=== PATIENT | male | born 1965 | race Caucasian/White ===

== ENCOUNTER 2019-08-29 14:12 | Emergency (ER) | payer SELFPAY ==
[~2019-08-29] VITALS: Ht 185.4 cm; Wt 170.4 kg
[~2019-08-29 14:12] MED LIST: ENOX150D SQ; FAMO20TA5 PO; LACT1CAP19 PO; LINE600T12 PO; WARF-78 PO
[2019-08-29 14:27] VITALS: BP 181/107
[2019-08-29 14:43] LABS: PROTHROMBIN TIME PATIENT 13.9 SEC (11.7-14.0)
[2019-08-29] MEDS ORDERED: CEPH-264 PO (16:00)
[2019-08-29] MEDS ORDERED: WARF-31 PO (16:00)
--- NOTE | 2019-08-29 16:18 | PHYS DOC ---
Past Medical History Past Medical History: DVT Additional Past Medical Histor: PE, CHRONIC BACK PAIN Past Surgical History: Other Additional Past Surgical Histo: R. KNEE Smoking Status: Never Smoker Alcohol Use: None General Adult EDM: Chief Complaint: ABNORMAL LABS HPI: HPI: Patient is a 54 year old male who presents needing an INR check. Patient was admitted at the beginning of August for DVT with PE and was placed on coumadin. He was discharged home with Warfarin 5mg daily and has been taking that for the last 2 weeks. He denies any new issues. He doesn't have insurance so he was unable to get into a clinic to follow up. He called the admitting physician who recommended that he come to the ED to have it checked. He also was unable to afford his Zyvox prescription for his cellulitis. Review of Systems: Review of Systems: Constitutional: Denies fever or chills. [] Eyes: Denies change in visual acuity. [] HENT: Denies nasal congestion or sore throat. [] Respiratory: Denies cough or shortness of breath. [] Cardiovascular: Denies chest pain or edema. [] GI: Denies abdominal pain, nausea, vomiting, bloody stools or diarrhea. [] : Denies dysuria. [] Musculoskeletal: Denies back pain or joint pain. [] Integument: Denies rash. [] Neurologic: Denies headache, focal weakness or sensory changes. [] Endocrine: Denies polyuria or polydipsia. [] Lymphatic: Denies swollen glands. [] Psychiatric: Denies depression or anxiety. [] Heart Score: Risk Factors: Risk Factors: DM, Current or recent (<one month) smoker, HTN, HLP, family history of CAD, obesity. Risk Scores: Score 0 - 3: 2.5% MACE over next 6 weeks - Discharge Home Score 4 - 6: 20.3% MACE over next 6 weeks - Admit for Clinical Observation Score 7 - 10: 72.7% MACE over next 6 weeks - Early Invasive Strategies Allergies: Allergies: Allergies Coded Allergies Type Severity Reaction Last Updated Verified aspartame Allergy Intermediate 08/10/19 Yes Physical Exam: PE: Constitutional: Well developed, well nourished, Cooperative, NAD, non-toxic appearing HEENT: Normocephalic, atraumatic, oropharynx moist, EOMI, PERRL, no drainage fr om eyes, normal conjunctiva Neck: Supple, normal range of motion, no stridor Cardiovascular: RRR, 2+ radial pulses bilaterally, no edema Respiratory: CTA bilaterally, no respiratory distress, no wheezing/crackles Abdomen: Soft, nontender, nondistended, no masses Skin: Warm, dry, intact Extremities: No obvious deformities Neurologic: Alert and Oriented x3, motor and sensory function grossly normal, no focal deficits Psychologic: Normal affect, normal judgment, normal mood. No SI/HI Current Patient Data: Labs: Laboratory Tests Test 08/29/19 14:13 Prothrombin Time 13.9 SEC (11.7-14.0) Prothrombin Time INR 1.1 (0.8-1.1) Vital Signs: Vital Signs Date Time Temp Pulse Resp B/P (MAP) Pulse Ox O2 Delivery O2 Flow Rate FiO2 08/29/19 14:27 97.9 99 18 181/107 (131) 93 Room Air 97.9 EKG: EKG: [] Radiology/Procedures: Radiology/Procedures: [] Course & Med Decision Making: Course & Med Decision Making Pertinent Labs and Imaging studies reviewed. (See chart for details) Patient is a 54 year old male who presents needing INR checked. INR is 1.1 at this time. I have discussed the case with Dr Del Castillo the on-call hospitalist who recommended the following warfarin adjustments: Warfarin 15mg MWF and Warfarin 10mg TThSaSu. I have discussed this change with the patient who states understanding. I will also switch him to Keflex for his cellulitis. He was given a list of free clinics. Patient's test results and vitals while in the ED were fully reviewed and discussed with the patient. Patient is stable and at this time does not need admission to the hospital. We have discussed strict return precautions and the importance of following up with their Primary Care Physician. Patient stated understanding and was given an opportunity to ask any questions. Dragon Disclaimer: Dragon Disclaimer: This electronic medical record was generated, in whole or in part, using a voice recognition dictation system. Departure Departure Impression: Primary Impression: Pulmonary embolism Disposition: HOME, SELF-CARE Condition: GOOD Patient Instructions: Warfarin, [id number] Scripts Cephalexin (KEFLEX) 500 Mg Capsule 1 CAP PO TID for 10 Days, #30 CAP 0 Refills Prov: CHANNING MEJÍA MD 08/29/19 Warfarin Sodium (WARFARIN SODIUM) 5 Mg Tablet 10 MG PO DAILY, #42 TAB Take 10mg on Wednesday, , Wednesday, Wednesday Take 15mg on Wednesday, Wednesday, Wednesday Prov: CHANNING MEJÍA MD 08/29/19 CHANNING MEJÍA MD August 29, 2019 16:18
== END 2019-08-29 16:06 | disposition home or self-care (01) ==
LOC: ER 14:12
DX: I26.99 Other pulmonary embolism without acute cor pulmonale (principal); G89.29 Other chronic pain; Z86.718 Personal history of other venous thrombosis and embolism; Z79.01 Long term (current) use of anticoagulants; Z88.8 Allergy status to other drugs, medicaments and biological substances
CPT/HCPCS: 36415; 85610; 99283

== ENCOUNTER 2019-09-16 11:19 | Emergency (ER) | payer SELFPAY ==
[~2019-09-16] VITALS: Ht 185.4 cm; Wt 189.3 kg
[~2019-09-16 11:19] MED LIST changes: +CEPH-264 PO; +WARF-31 PO; -WARF-78 PO; +WARF5TAB2 PO
[2019-09-16 12:16] LABS: BASO % 1 % (0-3); EOS # 0.3 x10^3/uL (0.0-0.7); EOS % 5 % (0-3); HEMATOCRIT 47.9 % (39.0-53.0); HEMOGLOBIN 15.6 g/dL (13.0-17.5); LYMPH # 1.1 x10^3/uL (1.0-4.8); LYMPH % 17 % (24-48); MEAN CORPUSCULAR HEMOGLOBIN 28 pg (25-35); MEAN CORPUSCULAR HGB CONC 33 g/dL (31-37); MEAN CORPUSCULAR VOLUME 85 fL (79-100); MONO # 0.5 x10^3/uL (0.0-1.1); MONO % 7 % (0-9); NEUT # 4.4 x10^3/uL (1.8-7.7); NEUT % 69 % (31-73); PLATELET COUNT 263 x10^3/uL (140-400); RED BLOOD COUNT 5.63 x10^6/uL (4.30-5.70); RED CELL DISTRIBUTION WIDTH 16.4 % (11.5-14.5); WHITE BLOOD COUNT 6.4 x10^3/uL (4.0-11.0)
[2019-09-16 12:25] LABS: PROTHROMBIN TIME PATIENT 20.4 SEC (11.7-14.0)
--- NOTE | 2019-09-16 13:50 | RAD ---
EXAM: Right lower extremity venous Doppler. HISTORY: Increased swelling in the right lower extremity. History of recent DVT. COMPARISON: Venous duplex ultrasound of 08/04/2019 of the bilateral lower extremity. FINDINGS: Grayscale and Doppler analysis of the right lower extremity deep venous system was performed with graded compression and augmentation. The common femoral, greater saphenous, superficial femoral, popliteal and calf veins were assessed. There is interval development of color Doppler signal in the posterior tibial vein which remains noncompressible. Likewise, noncompressibility of the distal right popliteal and better visualized peroneal vein on this examination is demonstrated, consistent with nonocclusive DVT. IMPRESSION: 1. Nonocclusive DVT in the right popliteal, peroneal and posterior tibial veins with partial interval recanalization of the previously occluded posterior tibial vein. Electronically signed by: Hortencia Alva MD (09/16/2019 1:47 PM) [id number]
[2019-09-16 14:07] VITALS: BP 144/99
[2019-09-16] MEDS ORDERED: WARF5TAB2 PO (14:21)
--- NOTE | 2019-09-16 14:22 | PHYS DOC ---
Past Medical History Past Medical History: DVT, Other Additional Past Medical Histor: PE, CHRONIC BACK PAIN Past Surgical History: Other Additional Past Surgical Histo: R. KNEE Smoking Status: Never Smoker Alcohol Use: None General Adult EDM: Chief Complaint: LOWER EXTREMITY SWELLING HPI: HPI: Patient is a 54 year old male who presents to the emergency department with complaints of increased right leg swelling since last night. He was dismissed from this hospital on August 172019 after being admitted for a DVT in his right leg and pulmonary embolisms. Patient denies any increased pain to his right lower extremity. He denies any chest pain, palpitations, shortness of breath, hemoptysis, nausea, vomiting, diarrhea, abdominal pain, body aches, fatigue, or wheezing. Patient denies any drainage or weeping from his right lower extremity. He denies any injury. Patient reports that he has been taking Coumadin 10 mg on Tuesdays, , Saturdays, and Sundays and 15 mg on Mondays, Wednesdays, and Fridays since being discharged from this facility. Patient states he has been unable to have his INR rechecked because he lost his insurance and reports that he needs a refill of his Coumadin because he took his last dose yesterday. Patient currently denies any pain. Review of Systems: Review of Systems: Constitutional: Denies fever or chills. [] Eyes: Denies change in visual acuity. [] HENT: Denies nasal congestion or sore throat. [] Respiratory: Denies cough or shortness of breath. [] Cardiovascular: Denies chest pain or edema. [] GI: Denies abdominal pain, nausea, vomiting, bloody stools or diarrhea. [] : Denies dysuria. [] Musculoskeletal: Denies back pain or joint pain; see HPI [] Integument: Denies rash; see HPI [] Neurologic: Denies headache, focal weakness or sensory changes. [] Endocrine: Denies polyuria or polydipsia. [] Lymphatic: Denies swollen glands. [] Psychiatric: Denies depression or anxiety. [] Heart Score: Risk Factors: Risk Factors: DM, Current or recent (<one month) smoker, HTN, HLP, family history of CAD, obesity. Risk Scores: Score 0 - 3: 2.5% MACE over next 6 weeks - Discharge Home Score 4 - 6: 20.3% MACE over next 6 weeks - Admit for Clinical Observation Score 7 - 10: 72.7% MACE over next 6 weeks - Early Invasive Strategies Allergies: Allergies: Allergies Coded Allergies Type Severity Reaction Last Updated Verified aspartame Allergy Intermediate 08/10/19 Yes Physical Exam: PE: Constitutional: Well developed, well nourished, no acute distress, non-toxic appearance, morbidly obese. [] HENT: Normocephalic, atraumatic, bilateral external ears normal, nose normal. [] Eyes: PERRLA, EOMI, conjunctiva normal, no discharge. [] Neck: Normal range of motion, no stridor. [] Cardiovascular:Heart rate regular rhythm Lungs & Thorax: Respirations even and unlabored, no retractions, no respiratory distress Abdomen: soft, no tenderness Skin: Warm, dry, erythema to bilateral lower extremities, no warmth, no drainage Extremities: RLE: No bony tenderness or deformity, posterior tibial and pedal pulse 2+, no cyanosis, ROM intact, 2 + edema. [] Neurologic: Alert and oriented X 3, no focal deficits noted. [] Psychologic: Affect normal, judgement normal, mood normal. [] Current Patient Data: Labs: Laboratory Tests Test 09/16/19 12:05 White Blood Count 6.4 x10^3/uL (4.0-11.0) Red Blood Count 5.63 x10^6/uL (4.30-5.70) Hemoglobin 15.6 g/dL (13.0-17.5) Hematocrit 47.9 % (39.0-53.0) Mean Corpuscular Volume 85 fL (79-100) Mean Corpuscular Hemoglobin 28 pg (25-35) Mean Corpuscular Hemoglobin Concent 33 g/dL (31-37) Red Cell Distribution Width 16.4 % (11.5-14.5) H Platelet Count 263 x10^3/uL (140-400) Neutrophils (%) (Auto) 69 % (31-73) Lymphocytes (%) (Auto) 17 % (24-48) L Monocytes (%) (Auto) 7 % (0-9) Eosinophils (%) (Auto) 5 % (0-3) H Basophils (%) (Auto) 1 % (0-3) Neutrophils # (Auto) 4.4 x10^3/uL (1.8-7.7) Lymphocytes # (Auto) 1.1 x10^3/uL (1.0-4.8) Monocytes # (Auto) 0.5 x10^3/uL (0.0-1.1) Eosinophils # (Auto) 0.3 x10^3/uL (0.0-0.7) Basophils # (Auto) 0.0 x10^3/uL (0.0-0.2) Prothrombin Time 20.4 SEC (11.7-14.0) H Prothrombin Time INR 1.8 (0.8-1.1) H Activated Partial Thromboplast Time 39 SEC (24-38) H Laboratory Tests 09/16/19 12:05 Vital Signs: Vital Signs Date Time Temp Pulse Resp B/P (MAP) Pulse Ox O2 Delivery O2 Flow Rate FiO2 09/16/19 11:32 98.0 93 20 161/121 (134) 92 Room Air 98.0 EKG: EKG: [] Radiology/Procedures: Radiology/Procedures: PROCEDURE: VENOUS LOWER EXTREMITY RIGHT EXAM: Right lower extremity venous Doppler. HISTORY: Increased swelling in the right lower extremity. History of recent DVT. COMPARISON: Venous duplex ultrasound of 08/04/2019 of the bilateral lower extremity. FINDINGS: Grayscale and Doppler analysis of the right lower extremity deep venous system was performed with graded compression and augmentation. The common femoral, greater saphenous, superficial femoral, popliteal and calf veins were assessed. There is interval development of color Doppler signal in the posterior tibial vein which remains noncompressible. Likewise, noncompressibility of the distal right popliteal and better visualized peroneal vein on this examination is demonstrated, consistent with nonocclusive DVT. IMPRESSION: 1. Nonocclusive DVT in the right popliteal, peroneal and posterior tibial veins with partial interval recanalization of the previously occluded posterior tibial vein.[] Course & Med Decision Making: Course & Med Decision Making Pertinent Labs and Imaging studies reviewed. (See chart for details) Patient is a 54-year-old male who presented to the emergency room with concerns of increased swelling in his right lower extremity since yesterday. Patient reported that he had been discharged from this facility about a month ago with a DVT and PEs. He stated that he was out of his Coumadin and reported that he had not had his INR checked after being discharged. Work-up included a CBC, PT/INR, and ultrasound of the right lower extremity. Ultrasound revealed a nonocclusive DVT in the right popliteal, peroneal, and posterior tibial veins with partial interval recanalization of the previously occluded posterior tibial vein. CBC revealed no acute findings. The patient's INR was 1.8 noted to be subtherapeutic. The patient was given 150 mg of subcutaneous Lovenox. He was encouraged to start taking 15 mg of Coumadin on Tuesdays, , Saturdays, and Sundays and to take 10 mg of Coumadin on Mondays, Wednesdays, and Fridays. He was provided with a list of clinics available to people who do not have insurance. He was strongly encouraged to have his INR checked next week and to follow-up with a primary care doctor. Prescription was written for 90 tablets of Coumadin 5 mg each. Patient verbalized an understanding of home care, medications, follow-up, and return to ED instructions and was in agreement with the plan of care. Plan of care was discussed with Dr. Rodriguez prior to patient discharge. [] Alesia Disclaimer: Dragon Disclaimer: This electronic medical record was generated, in whole or in part, using a voice recognition dictation system. 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 Have your INR rechecked in one week. Return to the ER if symptoms worsen. Scripts Warfarin Sodium (COUMADIN) 5 Mg Tablet 5 MG PO UD for 30 Days, #90 TAB take 3 tabs on Wednesday, Wednesday, Wednesday, take 2 tabs on Wednesday, Wednesday, Wednesday Prov: DEBBY YBARRA APRN 09/16/19 Justicifation of Admission Dx: Justifications for Admission: Justification of Admission Dx: N/A DEBBY YBARRA APRN Sep 16, 2019 14:21
== END 2019-09-16 14:45 | disposition home or self-care (01) ==
LOC: ER 11:19
DX: I82.5Z1 Chronic embolism and thrombosis of unspecified deep veins of right distal lower extremity (principal); R60.0 Localized edema; G89.29 Other chronic pain; Z98.890 Other specified postprocedural states; Z88.8 Allergy status to other drugs, medicaments and biological substances
CPT/HCPCS: 36415; 85025; 85610; 85730; 93971; 96372; 99285; J1650

== ENCOUNTER → 2019-10-20 | Outpatient (CLI) | payer SELFPAY ==
[~2019-10-20] MED LIST changes: +CONTRAST GIVEN. MC PRN; +IOHEXOL 350 MG/ML 100 ML VIAL. IV ONE
--- NOTE | 2019-10-20 13:23 | RAD ---
CTA of the chest compared to similar examination dated August 062023 shortness of air, follow-up pulmonary embolism. TECHNIQUE: CT of the chest performed including sagittal and coronal MIPS. FINDINGS: Contrast bolus timing is suboptimal for evaluation of subsegmental and all subsegmental pulmonary arteries. The previously noted pulmonary artery embolism within the main and lobar distributions is entirely resolved. There may be a small amount of residual segmental thrombus in the anterior division right upper lobe, as well as the posterior lateral division of the left lower lobe. No new main or lobar pulmonary arterial embolism is identified. The main pulmonary artery itself is smaller today consistent with improvement in the previously seen pulmonary hypertension. There is no evidence of right heart strain. Stable appearing calcified mediastinal and hilar adenopathy is noted, consistent with antecedent granulomatous disease. No suspicious adenopathy is evident. There is cholelithiasis. Within the anterior aspect the left lobe of the liver measures 1.4 cm hypodensity which was not well depicted on the prior scan due to contrast timing variation. This lesion should be further characterized with three-phase CT scan of the abdomen or MRI of the abdomen. Remaining upper abdominal organs are grossly unremarkable. Multilevel degenerative changes the spine. No suspicious osteoblastic or osteolytic bone lesions. No significant lung parenchymal abnormality. IMPRESSION: 1. Resolution of the previously seen main and lobar pulmonary arterial embolism. There may be a couple of segmental branches that have persistent residual thrombus, however bolus timing is suboptimal for evaluation of most segmental and all subsegmental branches. 2. No new pulmonary embolism. 3. Improved appearance of the pulmonary artery suggesting improved pulmonary artery hypertension. 4. 1.4 cm hypodense solid lesion within the left lobe of the liver, incompletely evaluated on this single phase examination. Further evaluation with three-phase CT scan or MRI is recommended. PQRS Compliance Statement: One or more of the following individualized dose reduction techniques were utilized for this examination: 1. Automated exposure control 2. Adjustment of the mA and/or kV according to patient size 3. Use of iterative reconstruction technique Electronically signed by: Elian Aragon MD (10/20/2019 1:20 PM) [id number]
== END | disposition home or self-care (01) ==
LOC: CT 10:59
PROVIDERS: ATTEND Internal Medicine Pulmonary Disease
DX: I26.99 Other pulmonary embolism without acute cor pulmonale (principal); K80.20 Calculus of gallbladder without cholecystitis without obstruction
CPT/HCPCS: 71275; Q9967

== ENCOUNTER 2019-11-14 06:25 | Emergency (ER) | payer OTHER ==
[~2019-11-14] VITALS: Ht 185.4 cm; Wt 181.8 kg
[~2019-11-14 06:25] MED LIST changes: -CONTRAST GIVEN. MC PRN; -IOHEXOL 350 MG/ML 100 ML VIAL. IV ONE
[2019-11-14 06:34] VITALS: BP 159/87
--- NOTE | 2019-11-14 06:48 | PHYS DOC ---
Past Medical History Past Medical History: DVT, Other Additional Past Medical Histor: PE, CHRONIC BACK PAIN Past Surgical History: Other Additional Past Surgical Histo: R. KNEE Smoking Status: Never Smoker Alcohol Use: None General Adult EDM: Chief Complaint: FOREIGNBODY EAR HPI: HPI: Patient is a 54 year old woke up this morning felt like something inside his left ear, so he came here for evaluation. Denies any hearing loss. Review of Systems: Review of Systems: Constitutional: Denies fever or chills. [] Eyes: Denies change in visual acuity. [] HENT: Denies nasal congestion or sore throat. [] Respiratory: Denies cough or shortness of breath. [] Cardiovascular: Denies chest pain or edema. [] GI: Denies abdominal pain, nausea, vomiting, bloody stools or diarrhea. [] : Denies dysuria. [] Musculoskeletal: Denies back pain or joint pain. [] Integument: Denies rash. [] Neurologic: Denies headache, focal weakness or sensory changes. [] Endocrine: Denies polyuria or polydipsia. [] Lymphatic: Denies swollen glands. [] Psychiatric: Denies depression or anxiety. [] Heart Score: Risk Factors: Risk Factors: DM, Current or recent (<one month) smoker, HTN, HLP, family history of CAD, obesity. Risk Scores: Score 0 - 3: 2.5% MACE over next 6 weeks - Discharge Home Score 4 - 6: 20.3% MACE over next 6 weeks - Admit for Clinical Observation Score 7 - 10: 72.7% MACE over next 6 weeks - Early Invasive Strategies Allergies: Allergies: Allergies Coded Allergies Type Severity Reaction Last Updated Verified aspartame Allergy Intermediate 08/10/19 Yes Physical Exam: PE: Constitutional: Well developed, well nourished, no acute distress, non-toxic appearance. [] HENT: Normocephalic, atraumatic, bilateral external ears normal, oropharynx moist, no oral exudates, nose normal. There is a cockroach inside left external ear canal. Eyes: PERRLA, EOMI, conjunctiva normal, no discharge. [] Neck: Normal range of motion, no tenderness, supple, no stridor. [] Neurologic: Alert and oriented X 3, normal motor function, normal sensory function, no focal deficits noted. [] Psychologic: Affect normal, judgement normal, mood normal. [] EKG: EKG: [] Radiology/Procedures: Radiology/Procedures: Foreign body removal: a cockroach was removed from left external ear canal with alligator forcep. TYMPANIC MEMBRANCE WAS INTACT. Trace of bright red blood on the wall of external ear canal. Patient tolerated procedure well. Course & Med Decision Making: Course & Med Decision Making Pertinent Labs and Imaging studies reviewed. (See chart for details) [] Dragon Disclaimer: Dragon Disclaimer: This electronic medical record was generated, in whole or in part, using a voice recognition dictation system. Departure Departure Impression: Primary Impression: Foreign body of ear, left Disposition: 01 HOME, SELF-CARE Condition: IMPROVED Referrals: NO PCP (PCP) follow up with your doctor as needed Patient Instructions: Ear Foreign Body Justicifation of Admission Dx: Justifications for Admission: Justification of Admission Dx: N/A ANMOL AMADOR DO Nov 14, 2019 06:48
== END 2019-11-14 06:54 | disposition home or self-care (01) ==
LOC: ER 06:25
DX: T16.2XXA Foreign body in left ear, initial encounter (principal); G89.29 Other chronic pain; Z86.718 Personal history of other venous thrombosis and embolism; Z86.711 Personal history of pulmonary embolism; Z88.8 Allergy status to other drugs, medicaments and biological substances; X58.XXXA Exposure to other specified factors, initial encounter; Y93.89 Activity, other specified; Y92.89 Other specified places as the place of occurrence of the external cause; Y99.8 Other external cause status
CPT/HCPCS: 69200; 99284

== ENCOUNTER → 2020-05-24 | Outpatient (CLI) | payer OTHER ==
[~2020-05-24] MED LIST changes: +GADOTERATE 7.5 MMOL/15ML VIAL. IVP ONE; +IOHEXOL 300 MG/ML 100ML VIAL. IV ONE
--- NOTE | 2020-05-24 10:52 | KCIC ---
EXAMINATION: XR EYE_DETECT FOREIGN BODY CLINICAL HISTORY: SCREENING PER STANDING PROTOCOL FOR MRI. Previous metal to both eyes. TECHNIQUE: XR EYE_DETECT FOREIGN BODY COMPARISON: None FINDINGS/ IMPRESSION: No retained metallic foreign body visualized in the region of the orbits. Remainder of the exam other fierro unremarkable. Electronically signed by: Luis Keenan DO (05/24/2020 10:50 AM) [id number]
--- NOTE | 2020-05-27 10:08 | KCIC ---
Study: CT CHEST WITH CONTRAST - PULMONARY ANGIOGRAM History: PE. History of PE 08/05/2019 Comparison: CT PE 08/07/2019 and 10/20/2019 Technique: Helical CT of the chest performed after the administration of 100 mL Omnipaque 300 intrav enous contrast and timed for angiographic evaluation of the pulmonary arteries per PE protocol. Coron al and sagittal 3D MIP reformations were obtained. One or more of the following individualized dose reduction techniques were utilized for this examinat ion: 1. Automated exposure control 2. Adjustment of the mA and/or kV according to patient size 3. Use of iterative reconstruction technique. Findings: Pulmonary Arteries: The exam is limited due to contrast bolus, large body habitus resulting in artifa ct, and motion. There is no definite acute pulmonary embolism. Small residual chronic emboli in segme ntal and subsegmental pulmonary arteries cannot be excluded. Heart/Systemic Vasculature: Heart is normal in size. No pericardial effusion. Thoracic aorta is melissa l in caliber. Mediastinum: No lymphadenopathy. Lungs: The lungs are clear. No pleural effusion. Neck/Axilla/Body Wall: Thyroid gland is normal. No axillary lymphadenopathy. Upper Abdomen: There is a 4.7 cm simple cyst in the superior left renal pole. Bones: No acute osseous abnormality. Mild thoracic degenerative disc disease. IMPRESSION: Limited exam due to contrast bolus, body habitus, and motion. There is no acute pulmonary embolism in the main or lobar pulmonary arteries. Small residual chronic pulmonary emboli in segmental and subse gmental pulmonary arteries are not excluded. Electronically signed by: Luana Jones MD (05/27/2020 10:06 AM) [id number]
== END ==
LOC: KCIC MRI 10:26
PROVIDERS: ATTEND Nurse Practitioner Gerontology
DX: I26.99 Other pulmonary embolism without acute cor pulmonale (principal); K76.9 Liver disease, unspecified
CPT/HCPCS: 70030; 71275; Q9967

== ENCOUNTER → 2020-06-10 | Outpatient (CLI) | payer OTHER ==
[~2020-06-10] MED LIST changes: +CONTRAST GIVEN. MC PRN; -GADOTERATE 7.5 MMOL/15ML VIAL. IVP ONE
--- NOTE | 2020-06-10 14:15 | KCIC ---
EXAM: Abdomen and pelvis CT with and without intravenous contrast. HISTORY: Liver lesion on CT angiography of the chest. TECHNIQUE: Computed tomographic images of the abdomen and pelvis were obtained prior to and following the administration of intravenous contrast. Multiplanar reformatting was performed. *One or more of the following individualized dose reduction techniques were utilized for this examina tion: 1. Automated exposure control. 2. Adjustment of the mA and/or kV according to patient size. 3. Use of iterative reconstruction technique. COMPARISON: CT angiogram dated 05/24/2020 and 10/18/2019. FINDINGS: Evaluation of the lower thorax demonstrates lingular and right middle lobe atelectasis or s carring. There is no infiltrate or pleural effusion. The heart is upper normal in size. There are few calcified granulomas. There is a stable 1.2 cm hypodense lesion within the left hepatic lobe. This d emonstrates no enhancement and is likely a simple cyst. There is cholelithiasis. No pancreatic lesion is seen. The spleen is normal in size. The adrenal glands are unremarkable. There is a 5.5 cm simple cyst within the upper pole of the left kidney. There is no nephrolithiasis or hydronephrosis. The vi sualized loops of bowel are unremarkable. The aorta is normal in caliber. There is no suspicious osse ous lesion. There is degenerative change involving the lumbar spine. IMPRESSION: 1. Stable 1.2 cm hypodense lesion within the left hepatic lobe, the appearance of which favors a cyst . 2. Stable 5.5 cm simple cyst within the left kidney. Follow-up is not routinely performed for simple cysts. 3. No acute abdominal or pelvic finding. Electronically signed by: Jalyn Espana MD (06/10/2020 2:12 PM) [id number]
== END ==
LOC: KCIC CT 12:53
PROVIDERS: ATTEND Nurse Practitioner Gerontology
DX: N28.1 Cyst of kidney, acquired (principal); K76.9 Liver disease, unspecified
CPT/HCPCS: 74170; Q9967